=== PATIENT | female | born 1955 | race Caucasian/White ===

== ENCOUNTER 2019-01-22 11:06 | Emergency (ER) | payer OTHER ==
--- OUTSIDE RECORDS SUMMARY | 2019-01-22 11:08 | XMS REPORT ---
:1955 [facility] Address [address] [place] [address] Dr. Lopez [address] [place] [id number] Care Team Providers Name Role Phone Unavailable Unavailable Unavailable Problems This patient has no known problems. Allergies, Adverse Reactions, Alerts This patient has no known allergies or adverse reactions. Medications This patient has no known medications. Results Test Description Test Time Test Comments Text Results Atomic Results Result Comments ALCON HIP, 2 2018-07-20 13:35:00 Weight bearing FINAL REPORT PATIENT ID: VIEWS, LEFT viewsReason for [id number] Radiographs of Exam:->left hip pain the left hip - two views with weightbearing HISTORY: PainCOMPARISON: None available. FINDINGS:Bones:No acute displaced fracture. Osseous alignment is within normal limits. Joints:Scattered degenerative change. No osseous erosion Soft tissues:The soft tissues appear unremarkable. IMPRESSION: Scattered degenerative change. No osseous erosion Signed: Gigi Eddy Verified Date/Time: 07/20/2018 13:35:17 Reading Location: [facility] Reading Room [address] [place] [address]
--- OUTSIDE RECORDS SUMMARY | 2019-01-22 11:08 | XMS REPORT ---
:1955 Author Organization [employer] Care Team Providers Name Role Phone Esther Quiñones Provider Role Unavailable Allergies No Known Allergies Problems Problem Type Condition Code Onset Dates Condition Status Problem Postmenopausal bleeding N95.0 Active Problem Other depression F32.89 Active Problem Abnormal mammogram R92.8 Active Assessment Vaginosis N76.0 Active Problem Vaginal bleeding N93.9 Active Problem Atherosclerotic heart disease of I25.10 Active [place] coronary artery without angina pectoris Problem Coronary atherosclerosis due to I25.83 Active lipid rich plaque Problem Murmur R01.1 Active Problem Mild intermittent asthma without J45.20 Active complication Problem Hyperlipidemia, unspecified E78.5 Active hyperlipidemia type Problem Age-related osteoporosis without M81.0 Active current pathological fracture Problem Gastroesophageal reflux disease, K21.9 Active esophagitis presence not specified Medications Medication Code Code Instructions Start End Date Status Dosage System Date Estrace [facility] 00922097798 0.1 MG/GM May 18, Active as directed Vaginal 1g 2018 nightly for 5 days, then 3x/week Results No Known Results Summary Purpose [employer] Submission
--- OUTSIDE RECORDS SUMMARY | 2019-01-22 11:08 | XMS REPORT ---
:1955 Author Organization [employer] Care Team Providers Name Role Phone Amanda Remy Provider Role Unavailable Allergies, Adverse Reactions, Alerts Substance Reaction Event Type Parafon Forte DSC Info Not Available Drug Allergy Nasima-C Info Not Available Drug Allergy Problems Problem Type Condition Code Onset Dates Condition Status Problem Age-related osteoporosis without M81.0 Active current pathological fracture Problem Atherosclerotic heart disease of I25.10 Active [place] coronary artery without angina pectoris Problem Coronary atherosclerosis due to I25.83 Active lipid rich plaque Problem Primary osteoarthritis involving M15.0 Active multiple joints Problem Gastroesophageal reflux disease, K21.9 Active esophagitis presence not specified Problem Atrophic vaginitis N95.2 Active Problem Other depression F32.89 Active Problem Murmur R01.1 Active Problem Mild intermittent asthma without J45.20 Active complication Problem Hyperlipidemia, unspecified E78.5 Active hyperlipidemia type Assessment Atrophic vaginitis N95.2 Active Assessment Primary osteoarthritis involving M15.0 Active multiple joints Problem Vaginal bleeding N93.9 Active Assessment Gastroesophageal reflux disease, K21.9 Active esophagitis presence not specified Problem Postmenopausal bleeding N95.0 Active Assessment Screening for breast cancer Z12.31 Active Problem Abnormal mammogram R92.8 Active Medications Medication Code Code Instructions Start End Date Status Dosage System Date Gabapentin ND 06636640001 300 MG Orally Mar 02, Active 1 capsule Once a day 2018 Omeprazole [facility] 80555505593 40 MG Orally Active 1 capsule Once a day Meloxicam [facility] 84632648241 15 MG Orally Mar 02, May 31, Active 1 tablet Once a day 2018 2018 Estrace [facility] 27535698385 0.1 MG/GM Active as directed Vaginal 1g nightly for 5 days, then 3x/week Results No Known Results Summary Purpose [employer] Submission
--- OUTSIDE RECORDS SUMMARY | 2019-01-22 11:09 | XMS REPORT ---
:1955 Author Organization [employer] Care Team Providers Name Role Phone Amanda Remy Provider Role Unavailable Allergies No Known Allergies Problems Problem Type Condition Code Onset Dates Condition Status Problem Age-related osteoporosis without M81.0 Active current pathological fracture Problem Atherosclerotic heart disease of I25.10 Active [place] coronary artery without angina pectoris Problem Coronary atherosclerosis due to I25.83 Active lipid rich plaque Problem Vaginal bleeding N93.9 Active Problem Postmenopausal bleeding N95.0 Active Problem Abnormal mammogram R92.8 Active Problem Primary osteoarthritis involving M15.0 Active multiple joints Problem Gastroesophageal reflux disease, K21.9 Active esophagitis presence not specified Problem Atrophic vaginitis N95.2 Active Problem Other depression F32.89 Active Problem Murmur R01.1 Active Problem Mild intermittent asthma without J45.20 Active complication Problem Hyperlipidemia, unspecified E78.5 Active hyperlipidemia type Medications No Known Medications Results No Known Results Summary Purpose [employer] Submission
--- OUTSIDE RECORDS SUMMARY | 2019-01-22 11:09 | XMS REPORT ---
:1955 Author Organization [employer] Care Team Providers Name Role Phone Balta Sanders Provider Role Unavailable Allergies No Known Allergies Problems Problem Type Condition Code Onset Dates Condition Status Problem Age-related osteoporosis without M81.0 Active current pathological fracture Problem Atherosclerotic heart disease of I25.10 Active [place] coronary artery without angina pectoris Problem Coronary atherosclerosis due to I25.83 Active lipid rich plaque Problem Primary osteoarthritis involving M15.0 Active multiple joints Problem Gastroesophageal reflux disease, K21.9 Active esophagitis presence not specified Problem Atrophic vaginitis N95.2 Active Problem Other depression F32.89 Active Problem Murmur R01.1 Active Problem Mild intermittent asthma without J45.20 Active complication Problem Hyperlipidemia, unspecified E78.5 Active hyperlipidemia type Assessment Encounter for general adult medical Z00.00 Active examination without abnormal findings Problem Vaginal bleeding N93.9 Active Assessment Postmenopausal bleeding N95.0 Active Problem Postmenopausal bleeding N95.0 Active Assessment Precancerous skin lesion L98.9 Active Problem Abnormal mammogram R92.8 Active Medications Medication Code Code Instructions Start End Date Status Dosage System Date Omeprazole [facility] 05694556780 40 MG Orally Active 1 capsule Once a day Estrace ND 69666471535 0.1 MG/GM Active as directed Vaginal 1g nightly for 5 days, then 3x/week Gabapentin ND 45875609396 300 MG Orally Mar 02, Active 1 capsule Once a day 2018 Results No Known Results Summary Purpose [employer] Submission
--- OUTSIDE RECORDS SUMMARY | 2019-01-22 11:09 | XMS REPORT ---
:1955 Author Organization [employer] Care Team Providers Name Role Phone Amanda Remy Provider Role Unavailable Allergies No Known Allergies Problems Problem Type Condition Code Onset Dates Condition Status Problem Age-related osteoporosis without M81.0 Active current pathological fracture Problem Atherosclerotic heart disease of I25.10 Active [place] coronary artery without angina pectoris Problem Coronary atherosclerosis due to I25.83 Active lipid rich plaque Problem Primary osteoarthritis involving M15.0 Active multiple joints Problem Gastroesophageal reflux disease, K21.9 Active esophagitis presence not specified Problem Atrophic vaginitis N95.2 Active Problem Other depression F32.89 Active Problem Murmur R01.1 Active Problem Mild intermittent asthma without J45.20 Active complication Problem Hyperlipidemia, unspecified E78.5 Active hyperlipidemia type Problem Vaginal bleeding N93.9 Active Problem Postmenopausal bleeding N95.0 Active Assessment Abnormal mammogram R92.8 Active Problem Abnormal mammogram R92.8 Active Medications No Known Medications Results No Known Results Summary Purpose [employer] Submission
--- OUTSIDE RECORDS SUMMARY | 2019-01-22 11:09 | XMS REPORT ---
:1955 Author Organization [employer] Care Team Providers Name Role Phone Amanda Remy Provider Role Unavailable Allergies No Known Allergies Problems Problem Type Condition Code Onset Dates Condition Status Problem Age-related osteoporosis without M81.0 Active current pathological fracture Problem Atherosclerotic heart disease of I25.10 Active [place] coronary artery without angina pectoris Problem Coronary [...] Medications Results No Known Results Summary Purpose [employer] Submission
[2019-01-22] MEDS ORDERED: METHYLPREDNISOLONE 125 MG INJ ONE (12:27)
[2019-01-22] MEDS ORDERED: METHOCARBAMOL 1,000 MG/10 ML VIAL IV ONE (12:28)
[2019-01-22] MEDS ORDERED: HYDROCODONE/APAP 7.5/325 MG TAB ONE (12:28)
[2019-01-22] MEDS ORDERED: KETOROLAC 30 MG/ML INJ ONE (12:28)
[2019-01-22] MEDS ORDERED: NA CHLORIDE 0.9% 100 ML IV ONE (12:29)
--- NOTE | 2019-01-22 14:54 | RAD REPORT ---
EXAM DESCRIPTION: CT - Ankle Left Wo Con - 01/22/2019 2:23 pm CLINICAL HISTORY: ankle painleft side COMPARISON: None. TECHNIQUE: Axial 2 millimeter thick images of the left ankle were obtained. Sagittal and coronal ref ormatted images were generated and reviewed. The CT scan was performed using dose optimization techniques as appropriate to a performed exam incl uding one or more of the following: Automated exposure control, adjustment of the mA and/or kV accord ing to patient size (this includes techniques or standardized protocols for targeted exams where dose is matched to indication/reason for exam) and use of iterative reconstruction technique. . FINDINGS: No fracture or acute finding involving the distal tibia or fibula. There are degenerative marginal spurring changes along the tibiotalar joint line and along the inferior aspect of the fibula . A few small degenerative subcortical cysts seen in the distal fibula. Punctate calcifications are s een inferior to the medial malleolus. No bony coalition. No fracture or pathologic bone process. Dege nerative calcifications are present along the anterior and posterior margin of the tibiotalar joint. Patient has a small plantar spur and small Achilles spur. Midfoot degenerative changes are present as well. Numerous calcifications are seen near tendon insertions into the tarsal navicular. No joint effusions seen. Stranding is seen in the subcutaneous fatty tissues. No foreign body. IMPRESSION: Left ankle degenerative changes are present as detailed. No fracture or destructive bone process seen. Degenerative or possibly posttraumatic calcific tendinitis changes present in the medial aspect of th e ankle and midfoot.
--- NOTE | 2019-01-22 14:55 | RAD REPORT ---
EXAM DESCRIPTION: CT - Ankle Right Wo Con - 01/22/2019 2:23 pm CLINICAL HISTORY: ankle pain, right ankle COMPARISON: None. TECHNIQUE: Axial 2 millimeter thick images of the right ankle were obtained with sagittal and wilson l reformatted images generated and reviewed. The CT scan was performed using dose optimization techniques as appropriate to a performed exam incl uding one or more of the following: Automated exposure control, adjustment of the mA and/or kV accord ing to patient size (this includes techniques or standardized protocols for targeted exams where dose is matched to indication/reason for exam) and use of iterative reconstruction technique. FINDINGS: No fracture or acute finding involving the distal tibia and fibula. There are prominent ma rginal spurring changes present more so to the lateral aspect of the tibiotalar joint. Numerous small calcifications are present inferior to the medial malleolus. No bony coalition. No pathologic bone p rocess. Plantar and Achilles spurs are present. No air or foreign body in the soft tissues. IMPRESSION: Right ankle degenerative changes are present as detailed. No fracture or acute bone proc ess seen. Posttraumatic or degenerative calcific tendinitis changes are seen in the medial aspect of the ankle and midfoot.
--- NOTE | 2019-01-22 15:04 | RAD REPORT ---
EXAM DESCRIPTION: US - Extrem Venous W Compress Abrahan - 01/22/2019 2:44 pm CLINICAL HISTORY: Leg pain and swelling COMPARISON: None. TECHNIQUE: Real-time sonographic evaluation of the bilateral lower extremity common femoral, superfi cial femoral, popliteal and posterior tibial veins was performed. FINDINGS: Normal compressibility, flow augmentation, phasic flow and spontaneous flow are identified in the left and right lower extremity common femoral, superficial femoral, popliteal and posterior t ibial veins. No intraluminal filling defects seen. IMPRESSION: No DVT in either lower extremity.
--- NOTE | 2019-01-22 15:40 | EDPHYS ---
Physician Documentation [facility] Name: Rose Pate Age: 63 yrs Sex: Female : 1955 Arrival Date: 01/22/2019 Time: 11:09 Bed 24 Private MD: ED Physician Dada Rahman HPI: 01/22 15:46 This 63 yrs old Female presents to ER via Ambulatory with complaints of Leg kdr Pain, Hip Pain. 15:46 The patient presents with pain, that is acute. The complaints affect the. kdr 15:51 Context: The problem was sustained at home, resulted from an unknown cause, the patient kdr can fully bear weight, the patient is able to ambulate, Walking is better than sitting or lying down. Onset: The symptoms/episode began/occurred at an unknown time. has been ongoing for months but only in the last few days did she feel that she couldn't take the pain any more. Modifying factors: The symptoms are alleviated by nothing. Standing. the symptoms are aggravated by nothing. Associated signs and symptoms: Pertinent positives: Low back pain, lower extremity discoloration left greater than right. Treatment prior to arrival includes: Multiple meds both prescribed and OTC without relief. Severity of symptoms: At their worst the symptoms were moderate, severe, incapacitating, just prior to arrival, in the emergency department the symptoms have improved, mildly. The patient has experienced similar episodes in the past, chronically. The patient has been recently seen by a physician: the patient's primary care provider. Historical: - Allergies: 11:28 No Known Allergies; aa5 - PMHx: 11:28 Depression; Diabetes - NIDDM; Myocardial infarction; aa5 - PSHx: 11:28 cervical disc sx; aa5 - Immunization history:: Flu vaccine is up to date. - Social history:: Smoking status: Patient/guardian denies using tobacco. - Ebola Screening: : No symptoms or risks identified at this time. ROS: 15:51 Constitutional: Negative for fever, chills, and weight loss, Eyes: Negative for injury, kdr pain, redness, and discharge, Neck: Negative for injury, pain, and swelling, Cardiovascular: Negative for chest pain, palpitations, and edema, Respiratory: Negative for shortness of breath, cough, wheezing, and pleuritic chest pain, Abdomen/GI: Negative for abdominal pain, nausea, vomiting, diarrhea, and constipation, : Negative for injury, bleeding, discharge, and swelling, Neuro: Negative for headache, weakness, numbness, tingling, and seizure activity. Psych: Negative for depression, anxiety, suicide ideation, homicidal ideation, and hallucinations, Allergy/Immunology: Negative for hives, rash, and allergies, Endocrine: Negative for neck swelling, polydipsia, polyuria, polyphagia, and marked weight changes, Hematologic/Lymphatic: Negative for swollen nodes, abnormal bleeding, and unusual bruising. 15:51 Back: Positive for pain at rest, pain with movement, radiated pain, of the right low back. 15:51 MS/extremity: Positive for pain, Negative for contusion, decreased range of motion, rash, swelling, tenderness. 15:51 Skin: Positive for Lower extremities are mildly dusky and cyanotic with left greater than right. Both feet though are warm. Motor and sensation are both fully intact. Exam: 15:51 Constitutional: This is a well developed, well nourished patient who is awake, alert, kdr and in no acute distress. Head/Face: Normocephalic, atraumatic. Eyes: Pupils equal round and reactive to light, extra-ocular motions intact. Lids and lashes normal. Conjunctiva and sclera are non-icteric and not injected. Cornea within normal limits. Periorbital areas with no swelling, redness, or edema. Neck: Trachea midline, no thyromegaly or masses palpated, and no cervical lymphadenopathy. Supple, full range of motion without nuchal rigidity, or vertebral point tenderness. No Meningismus. Chest/axilla: Normal chest wall appearance and motion. Nontender with no deformity. No lesions are appreciated. Cardiovascular: Regular rate and rhythm with a normal S1 and S2. No gallops, murmurs, or rubs. Normal PMI, no JVD. No pulse deficits. Respiratory: Lungs have equal breath sounds bilaterally, clear to auscultation and percussion. No rales, rhonchi or wheezes noted. No increased work of breathing, no retractions or nasal flaring. Abdomen/GI: Soft, non-tender, with normal bowel sounds. No distension or tympany. No guarding or rebound. No evidence of tenderness throughout. Skin: Warm, dry with normal turgor. Normal color with no rashes, no lesions, and no evidence of cellulitis. MS/ Extremity: Pulses equal, no cyanosis. Neurovascular intact. Full, normal range of motion. Neuro: Awake and alert, GCS 15, oriented to person, place, time, and situation. Cranial nerves II-XII grossly intact. Motor strength 5/5 in all extremities. Sensory grossly intact. Cerebellar exam normal. Normal gait. Psych: Awake, alert, with orientation to person, place and time. Behavior, mood, and affect are within normal limits. Vital Signs: 11:28 BP 158 / 100; Pulse 85; Resp 16 S; Temp 98.0(TE); Pulse Ox 98% on R/A; Weight 80.74 kg aa5 (R); Height 5 ft. 0 in. (152.40 cm) (R); Pain 4/10; 13:05 BP 141 / 81; Pulse 81; Resp 18; Pulse Ox 93% on R/A; mg2 14:00 BP 149 / 84; Pulse 77; Resp 18; Pulse Ox 97% on 3 lpm NC; mg2 15:57 BP 135 / 78; Pulse 80; Resp 18; Temp 98.5; Pulse Ox 100% on R/A; Pain 0/10; mg2 11:28 Body Mass Index 34.76 (80.74 kg, 152.40 cm) aa5 MDM: 15:39 Patient medically screened. kdr 15:51 Data reviewed: vital signs, nurses notes, lab test result(s), radiologic studies. kdr Counseling: I had a detailed discussion with the patient and/or guardian regarding: the historical points, exam findings, and any diagnostic results supporting the discharge/admit diagnosis, lab results, radiology results, the need for outpatient follow up. ED course: Had detailed discussion with the patient regarding the results of the prior performed MRIs of her lumbar spine as well as her current lower extremity studies. 01/22 13:41 Order name: US Extremity Venous W Compression Abrahan; Complete Time: 15:22 kdr 01/22 14:08 Order name: Ankle Left Wo Con; Complete Time: 15:22 EDMS 01/22 14:08 Order name: Ankle Right Wo Con; Complete Time: 15:22 EDMS 01/22 12:16 Order name: Misc. Order: Print most recent MRI reports; Complete Time: 13:05 kdr Administered Medications: 12:35 Drug: TORadol - Ketorolac 15 mg Route: IVP; Site: left forearm; mg2 14:07 Follow up: Response: No adverse reaction; Marked relief of symptoms mg2 12:35 Drug: SOLU-Medrol 125 mg Route: IVP; Site: left forearm; mg2 14:07 Follow up: Response: No adverse reaction; Marked relief of symptoms mg2 12:35 Drug: Robaxin 1 grams Route: IVPB; Infused Over: 1 hrs; Site: left forearm; mg2 14:06 Follow up: Response: No adverse reaction; IV Status: Completed infusion mg2 12:35 Drug: [place] (7.5 mg-325 mg) 1 tabs Route: PO; mg2 14:06 Follow up: Response: No adverse reaction; Marked relief of symptoms mg2 Disposition: 01/22/19 15:39 Discharged to Home. Impression: Degnerative changes in spine and ankles, minimal spinal canal/foraminal stenosis at the L4-5 level. - Condition is Stable. - Prescriptions for Protonix 40 mg Oral Tablet - take 1 tablet by ORAL route once daily; 30 tablet. Prednisone 20 mg Oral Tablet - take 2 tablet by ORAL route once daily for 5 days; 10 tablet. Ibuprofen 600 mg Oral Tablet - take 1 tablet by ORAL route every 6 hours As needed take with food; 30 tablet. Tramadol 50 mg Oral Tablet - take 1 tablet by ORAL route every 8 hours as needed; 20 tablet. Carafate 1 gram Oral Tablet - take 1 tablet by ORAL route 4 times per day take on an empty stomach, beginning on waking and last dose at bedtime; 100 tablet. - Medication Reconciliation Form, Thank You Letter, Antibiotic Education, Prescription Opioid Use form. - Follow up: Private Physician; When: 2 - 3 days; Reason: If symptoms return, Further diagnostic work-up, Recheck today's complaints, Continuance of care, Re-evaluation by your physician. - Problem is an ongoing problem. - Symptoms have improved. Signatures: Dispatcher [employer] EDMS Dada Rahman MD MD [facility] Mayela Posada RN RN aa5 Dc Brown RN RN mg2 Corrections: (The following items were deleted from the chart) 16:00 15:39 01/22/2019 15:39 Discharged to Home. Impression: Degnerative changes in spine and mg2 ankles, minimal spinal canal/foraminal stenosis at the L4-5 level. Condition is Stable. Forms are Medication Reconciliation Form, Thank You Letter, Antibiotic Education, Prescription Opioid Use. Follow up: Private Physician; When: 2 - 3 days; Reason: If symptoms return, Further diagnostic work-up, Recheck today's complaints, Continuance of care, Re-evaluation by your physician. Problem is an ongoing problem. Symptoms have improved. kdr
--- NOTE | 2019-01-22 15:40 | ER ---
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 Pt aa5 states "it's been going on for a while now and I just can't take it anymore". Transition of care: patient was not received from another setting of care. Onset of symptoms was 2018. Risk Assessment: Do you want to hurt yourself or someone else? Patient reports no desire to harm self or others. Initial Sepsis Screen: Does the patient meet any 2 criteria? No. Patient's initial sepsis screen is negative. Does the patient have a suspected source of infection? No. Patient's initial sepsis screen is negative. Care prior to arrival: None. 11:25 Acuity: REJI 4 aa5 11:25 Method Of Arrival: Ambulatory aa5 Historical: - Allergies: 11:28 No Known Allergies; aa5 - PMHx: 11:28 Depression; Diabetes - NIDDM; Myocardial infarction; aa5 - PSHx: 11:28 cervical disc sx; aa5 - Immunization history:: Flu vaccine is up to date. - Social history:: Smoking status: Patient/guardian denies using tobacco. - Ebola Screening: : No symptoms or risks identified at this time. Screenin:04 Abuse screen: Denies threats or abuse. Denies injuries from another. Nutritional mg2 screening: No deficits noted. Tuberculosis screening: No symptoms or risk factors identified. Fall Risk None identified. Assessment: 12:02 General: Appears in no apparent distress. comfortable, Behavior is calm, cooperative. mg2 Pain: Complains of pain in right hip to right ankle. Neuro: Level of Consciousness is awake, alert, obeys commands, Oriented to person, place, time, situation. Cardiovascular: Capillary refill < 3 seconds Patient's skin is warm and dry. Respiratory: Airway is patent Respiratory effort is even, unlabored, Respiratory pattern is regular, symmetrical. GI: No signs and/or symptoms were reported involving the gastrointestinal system. : No signs and/or symptoms were reported regarding the genitourinary system. EENT: No signs and/or symptoms were reported regarding the EENT system. Derm: Skin is intact, is healthy with good turgor, Skin is pink, warm \\T\\ dry. normal. Musculoskeletal: Reports pain in right hip to right ankle. 14:00 Reassessment: Patient appears in no apparent distress at this time. Patient and/or mg2 family updated on plan of care and expected duration. Pain level reassessed. Patient is alert, oriented x 3, equal unlabored respirations, skin warm/dry/pink. Patient states feeling better. 15:56 Reassessment: Patient appears in no apparent distress at this time. Patient states mg2 feeling better. Patient states symptoms have improved. Vital Signs: 11:28 BP 158 / 100; Pulse 85; Resp 16 S; Temp 98.0(TE); Pulse Ox 98% on R/A; Weight 80.74 kg aa5 (R); Height 5 ft. 0 in. (152.40 cm) (R); Pain 4/10; 13:05 BP 141 / 81; Pulse 81; Resp 18; Pulse Ox 93% on R/A; mg2 14:00 BP 149 / 84; Pulse 77; Resp 18; Pulse Ox 97% on 3 lpm NC; mg2 15:57 BP 135 / 78; Pulse 80; Resp 18; Temp 98.5; Pulse Ox 100% on R/A; Pain 0/10; mg2 11:28 Body Mass Index 34.76 (80.74 kg, 152.40 cm) aa5 ED Course: 11:09 Patient arrived in ED. mr 11:25 Dada Rahman MD is Attending Physician. kdr 11:25 Arm band placed on. aa5 11:26 Triage completed. aa5 12:02 Dc Brown, VARGHESE is Primary Nurse. mg2 12:04 Patient has correct armband on for positive identification. mg2 12:04 No provider procedures requiring assistance completed. mg2 12:30 Inserted saline lock: 20 gauge in left forearm, using aseptic technique. mg2 14:23 Ankle Left Wo Con In Process Unspecified. EDMS 14:25 Ankle Right Wo Con In Process Unspecified. EDMS 14:43 US Extremity Venous W Compression [place] In Process Unspecified. EDMS 15:59 IV discontinued, intact, bleeding controlled, No redness/swelling at site. mg2 Administered Medications: 12:35 Drug: TORadol - Ketorolac 15 mg Route: IVP; Site: left forearm; mg2 14:07 Follow up: Response: No adverse reaction; Marked relief of symptoms mg2 12:35 Drug: SOLU-Medrol 125 mg Route: IVP; Site: left forearm; mg2 14:07 Follow up: Response: No adverse reaction; Marked relief of symptoms mg2 12:35 Drug: Robaxin 1 grams Route: IVPB; Infused Over: 1 hrs; Site: left forearm; mg2 14:06 Follow up: Response: No adverse reaction; IV Status: Completed infusion mg2 12:35 Drug: [place] (7.5 mg-325 mg) 1 tabs Route: PO; mg2 14:06 Follow up: Response: No adverse reaction; Marked relief of symptoms mg2 Outcome: 15:39 Discharge ordered by . kdr 16:00 Discharged to home ambulatory. mg2 16:00 Condition: stable 16:00 Discharge instructions given to patient, Instructed on discharge instructions, follow up and referral plans. medication usage, Demonstrated understanding of instructions, follow-up care, medications, Prescriptions given X 5 16:00 Patient left the ED. mg2 Signatures: Dispatcher [employer] EDMS Dada Rahman MD MD kdr Rivera, Mary mr Calderon, Audri RN RN aa5 Dc Brown RN RN mg2 Corrections: (The following items were deleted from the chart) 11:28 11:28 Pulse 85bpm; Resp 16bpm; Spontaneous; Pulse Ox 98% RA; Temp 98.0F Temporal; 80.74 aa5 kg Reported; Height 5 ft. 0 in. Reported; BMI: 34.7; aa5 11:31 11:28 Pulse 85bpm; Resp 16bpm; Spontaneous; Pulse Ox 98% RA; Temp 98.0F Temporal; 80.74 aa5 kg Reported; Height 5 ft. 0 in. Reported; BMI: 34.7; Pain 4/10; aa5 15:58 12:04 Patient did not have IV access during this emergency room visit. mg2 mg2
[2019-01-22 16:57] VITALS: BP 135/78; TEMP 98.5; O2SAT 100
== END 2019-01-22 16:00 | disposition home or self-care (01) ==
LOC: ER 11:06
DX: M48.061 Spinal stenosis, lumbar region without neurogenic claudication (principal); E11.9 Type 2 diabetes mellitus without complications
CPT/HCPCS: 96365; 73700 ×2; 93970; 96375; 99284; 96366; J2930; J2800